=== PATIENT | female | born 1995 | race Caucasian/White ===

== ENCOUNTER 2016-07-17 13:35 | Emergency (ER) | payer OTHER ==
[~2016-07-17] VITALS: Ht 161.3 cm; Wt 57.3 kg
[2016-07-17 13:58] VITALS: TEMP 36.5; Ht 161.3 cm; Wt 57.3 kg
--- NOTE | 2016-07-17 14:34 | EMERGENCY ROOM VISIT NOTE ---
History Report prepared by Kevni: Yony Rutledge Under the Supervision of: Dr. Jeanmarie Long M.D. First contact with patient: 14:05 Chief Complaint: URINARY SYMPTOMS Stated Complaint: PERSISTENT URINARY TRACT INFECTION Nursing Triage Summary: frequency and recurrent uti's for the past few months History of Present Illness The patient is a 21 year old female who presents to the Emergency Room with complaints of persistent urinary symptoms for the past three weeks. The patient complains of urinary urgency and frequency and a warm feeling in her vaginal area. The patient has presented to [facility] a few times in the past few weeks. They have put her on three different antibiotics. She notes that after four days, the antibiotics stop working. She has been on Macrobid, Bactrim and Ceftriaxone. The patient notes that [facility] did do a urine culture and they said it was normal without bacterial infection or UTI. The patient does have a history of yeast infections, but notes her symptoms are different from these. She denies vaginal discharge that she has had in the past with her yeast infections. The patient denies pain with urination, fever, or chills at this time. Source of History: patient Onset: 3 weeks Position: other () Timing: other (persistent) Associated Symptoms: + urinary symptoms (urgency and frequency), No chills, No fevers Note: Other associated symptoms: warm feeling in vaginal area Denies: pain with urination Review of Systems All systems have been listed, reviewed, and are negative other than those previously mentioned. Please see Additional Medical History Sheet. Past Medical & Surgical Surgical Problems: (1) H/O rhinoplasty Family History FH: diabetes mellitus FH: heart disease FH: hypertension Social History Smoking Status: Never Smoker Alcohol Use: occasionally Housing Status: lives with roommate Occupation Status: student Current/Historical Medications Scheduled Ethinyl Estrad/Norgestimate (Sprintec 28), 1 TAB PO DAILY Allergies Coded Allergies: Codeine (Verified Allergy, Intermediate, migraines, 07/17/16) Lactose (Verified Allergy, Intermediate, GI SYMPTOMS, 07/17/16) Physical Exam Vital Signs Date Time Temp Pulse Resp B/P Pulse Ox O2 Delivery O2 Flow Rate FiO2 07/17/16 16:00 93 18 123/88 95 Room Air 07/17/16 13:58 36.5 89 20 120/82 98 Room Air Physical Exam GENERAL: Patient awake, alert, oriented x 3. Patient follows commands. Patient does not appear toxic. Patient is adequately hydrated and well- nourished. SKIN: No erythema, pallor, cyanosis or rash HEENT: Normal head, pupils equal, reactive to light and accommodation. Neck: Without adenopathy, no neck vein distention. LUNGS: Clear to auscultation. No wheezes, no rales, no rhonchi. HEART: No murmurs. No gallops. No rubs ABDOMEN: No masses, no rebound, no hepatomegaly or splenomegaly. No CVA tenderness. PELVIC: No unusual vaginal discharge, no blood, cervix appears normal, no uterine or adnexal tenderness, no other signs of infection. NEUROLOGIC: Cranial nerves II-XII within normal limits. No gross motor sensory function deficits. Medical Decision & Procedures Laboratory Results 07/17/16 14:22 Red Blood Count 4.73, Mean Corpuscular Volume 89.2, Mean Corpuscular Hemoglobin 29.4, Mean Corpuscular Hemoglobin Concent 32.9, Mean Platelet Volume 10.1, Neutrophils (%) (Auto) 56.9, Lymphocytes (%) (Auto) 26.4, Monocytes (%) (Auto) 10.9, Eosinophils (%) (Auto) 5.0, Basophils (%) (Auto) 0.4, Neutrophils # (Auto ) 4.76, Lymphocytes # (Auto) 2.21, Monocytes # (Auto) 0.91, Eosinophils # (Auto ) 0.42, Basophils # (Auto) 0.03 07/17/16 14:22 Test 07/17/16 14:10 07/17/16 14:22 Urine Color DK YELLOW Urine Appearance CLEAR (CLEAR) Urine pH 6.0 (4.5-7.5) Urine Specific [place] 1.020 (1.000-1.030) Urine Protein NEG (NEG) Urine Glucose (UA) NEG (NEG) Urine Ketones NEG (NEG) Urine Occult Blood NEG (NEG) Urine Nitrite POS (NEG) Urine Bilirubin NEG (NEG) Urine Urobilinogen NEG (NEG) Urine Leukocyte Esterase TRACE (NEG) Urine WBC (Auto) 5-10 /hpf (0-5) Urine RBC (Auto) 0-4 /hpf (0-4) Urine Hyaline Casts (Auto) 5-10 /lpf (0-5) Urine Epithelial Cells (Auto) >30 /lpf (0-5) Urine Bacteria (Auto) 1+ (NEG) Urine Test NEG (NEG) White Blood Count 8.36 K/uL (4.8-10.8) Red Blood Count 4.73 M/uL (4.2-5.4) Hemoglobin 13.9 g/dL (12.0-16.0) Hematocrit 42.2 % (37-47) Mean Corpuscular Volume 89.2 fL (80-100) Mean Corpuscular Hemoglobin 29.4 pg (25-34) Mean Corpuscular Hemoglobin Concent 32.9 g/dl (32-36) Platelet Count 322 K/uL (130-400) Mean Platelet Volume 10.1 fL (7.4-10.4) Neutrophils (%) (Auto) 56.9 % Lymphocytes (%) (Auto) 26.4 % Monocytes (%) (Auto) 10.9 % Eosinophils (%) (Auto) 5.0 % Basophils (%) (Auto) 0.4 % Neutrophils # (Auto) 4.76 K/uL (1.4-6.5) Lymphocytes # (Auto) 2.21 K/uL (1.2-3.4) Monocytes # (Auto) 0.91 K/uL (0.11-0.59) Eosinophils # (Auto) 0.42 K/uL (0-0.5) Basophils # (Auto) 0.03 K/uL (0-0.2) RDW Standard Deviation 39.3 fL (36.4-46.3) RDW Coefficient of Variation 12.2 % (11.5-14.5) Immature Granulocyte % (Auto) 0.4 % Immature Granulocyte # (Auto) 0.03 K/uL (0.00-0.02) Anion Gap 6.0 mmol/L (3-11) Est Creatinine Clear Calc Drug Dose 118.4 ml/min Estimated GFR () 147.6 Estimated GFR (Non- 127.3 BUN/Creatinine Ratio 13.9 (10-20) Calcium Level 9.3 mg/dl (8.5-10.1) Laboratory results as stated above per my review. Medications Administered Medications (Trade) Dose Ordered Sig/Iglesia Route Start Time Stop Time Status Last Admin Dose Admin Fluconazole (Diflucan Tab) 200 mg ONE ONCE PO 07/17/16 16:00 07/17/16 16:04 DC 07/17/16 16:10 200 MG ED Course 1405: Past medical records reviewed. The patient was evaluated in room A9. A complete history and physical examination was performed. 1529: At this time, I performed a pelvic exam on the patient. 1600: Ordered Diflucan 200 mg PO. 1605: Upon reevaluation, the patient is resting comfortably. I discussed today' s findings with her. She verbalized agreement of the treatment plan. The patient was discharged home. Medical Decision Differential diagnoses include UTI, vaginitis, STD, or yeast infection. The patient has been on 3 different antibiotics without releaf of her symptoms. A recent culture from [facility] apparently did not grow any bacteria. Exam today does not reveal any unusual discharge or unusual findings on the vaginal exam. Both the urine culture and cervical culture for GC chlamydia are pending. We will refrain from further antibiotic treatment until cultures are back. The patient was given 1 dose of Diflucan for possible yeast infection. Patient was encouraged to follow-up with gynecology. Impression Primary Impression: Urinary frequency Scribe Attestation The scribe's documentation has been prepared under my direction and personally reviewed by me in its entirety. I confirm that the note above accurately reflects all work, treatment, procedures, and medical decision making performed by me. Departure Information Dispostion Home / Self-Care Referrals No Doctor, Assigned (PCP) Forms HOME CARE DOCUMENTATION FORM, IMPORTANT VISIT INFORMATION Patient Instructions My [facility] Additional Instructions You were given Diflucan today for possible yeast infection. Await urine and vaginal cultures prior to any further antibiotic treatment. Follow-up with gynecology as soon as possible.
[2016-07-17 14:37] LABS: BASO % 0.4 %; BASO ABS # 0.03 K/uL (0-0.2); COMPLETE YES; HEMATOCRIT 42.2 % (37-47); IG% 0.4 %; LYMPH % 26.4 %; LYMPH ABS # 2.21 K/uL (1.2-3.4); MEAN CELL VOLUME 89.2 fL (80-100); MEAN CORPUSCULAR HEMOGLOBIN 29.4 pg (25-34); MEAN CORPUSCULAR HGB CONC 32.9 g/dl (32-36); MEAN PLATELET VOLUME 10.1 fL (7.4-10.4); MONO % 10.9 %; NEUT % 56.9 %; PLATELET COUNT 322 K/uL (130-400); RED BLOOD COUNT 4.73 M/uL (4.2-5.4); WHITE BLOOD COUNT 8.36 K/uL (4.8-10.8)
[2016-07-17] MEDS ORDERED: SPR28 PO (14:46)
[2016-07-17 14:54] LABS: BUN/CREATININE RATIO 13.9 (10-20); CALCIUM 9.3 mg/dl (8.5-10.1); CREATININE 0.63 mg/dl (0.60-1.20); POTASSIUM 3.7 mmol/L (3.5-5.1)
[2016-07-17 15:04] LABS: URINE APPEARANCE CLEAR (CLEAR); URINE BILIRUBIN NEG (NEG); URINE COLOR DK YELLOW; URINE EPITHELIAL CELL AUTO >30 /lpf (0-5); URINE NITRITE POS (NEG); UROBILINOGEN NEG (NEG); ZZUR CULT IF INDIC CLEAN CATCH YES
[2016-07-17 15:09] LABS: MANUAL MICROSCOPIC REQUIRED? NO; REVIEW REQ? NO
[2016-07-17 16:00] VITALS: BP 123/88; PULSE 93; O2SAT 95
[2016-07-17] MEDS ORDERED: FLUCONAZOLE 100 MG TAB PO ONE (16:00)
== END 2016-07-17 16:17 | disposition home or self-care (01) ==
LOC: C.EDB 13:38 → C.EDA 16:17
DX: R35.0 Frequency of micturition (principal); Z86.19 Personal history of other infectious and parasitic diseases; Z98.890 Other specified postprocedural states; Z83.3 Family history of diabetes mellitus; Z82.49 Family history of ischemic heart disease and other diseases of the circulatory system